=== PATIENT | male | born 1955 ===

== ENCOUNTER 2017-08-17 06:04 | Day surgery (SDC) | payer BC, OTHER, MEDICARE ==
[2017-08-15 15:07] VITALS: BMI 30.7
[2017-08-17 06:31] VITALS: RESP 20
[2017-08-17] MEDS ORDERED: Lidocaine 1% Inj (20ml) IJ ONE (06:46)
[2017-08-17] MEDS ORDERED: ceFAZolin 2 GM in Sodium Chloride 0.9% 100 ML IVPB ONE (06:46)
[2017-08-17] MEDS ORDERED: Bupivacaine 0.5% Inj(30mL) IJ ONE (06:46)
--- NOTE | 2017-08-17 06:49 | CP.SDSHP ---
Same Day Surgery H & P - History Proposed Procedure: R - foot debridement of ulcer with skin graft placement Pre-Op Diagnosis: Right foot chronic wound - Allergies Allergies: Allergies No Known Allergies Allergy (Verified 08/15/17 15:06) - Physical Exam Vital Signs: Vital Signs 08/17/17 08/17/17 06:30 06:32 Temperature 98.1 F Pulse Rate 69 69 Respiratory 20 Rate Blood Pressure 133/79 O2 Sat by Pulse 98 Oximetry Mental Status: Alert & Oriented x3 Neuro: WNL Heart: WNL Lungs: WNL - Date & Time Date: 08/17/17 Time: 06:49 Short Stay Discharge - Short Stay Discharge Admitting Diagnosis/Reason for Visit: L97.512 E10.621 Disposition: HOME/ ROUTINE Referrals: FAMILY PROVIDER,NO [Primary Care Provider] - Additional Instructions (Diet, Activity): -Patient in good/stable condition for discharge home -Pt to resume medications per medical reconciliation -Resume regular diet Please keep dressing clean, dry, & intact to surgical site -Use plastic bag over bandage for showering -Wear post op shoe at all times when ambulating -Call clinic if you seesigns of infection (redness, swelling, malodor) -Please make an appointment to see Dr. Ho in office/clinic within 1 week for post-op check Progress Note/Discharge Note with Instructions: - Patient evaluated bedside in recovery s/p surgical procedure. - After surgical procedure patient in NAD - (+) Void, (+) Appetite - Capillary refill time <3s and NVSI intact. - Patient denies complaints at this time - Post operative instructions and plan of care explained to patient at length. - Pt. acknowledges understanding. - Patient stable for DC per podiatric surgery
--- NOTE | 2017-08-17 06:52 | CP.PCM.PN ---
Subjective - Date & Time of Evaluation Date of Evaluation: 08/17/17 Time of Evaluation: 06:49 - Subjective Subjective: 62 y/o male with PMHx of DM, HTN, Hyperlipidemia, neuropathy seen and evaluated at bedside in [facility] for right foot wound debridement with graft placement procedure. Patient states that he has been NPO since midnight yesterday. Denies of any adverse reaction to anesthesia. Denies of any recent F/N/V/C/SOB/CP today. Denies of any other pedal complains now. PMHx: DM, HTN, Hyperlipidemia, neuropathy PSHx: Heart stent placement, left foot surgery, nose surgery Allergies: N.K.D.A SHx: Denies smoking, EtOH use or illicit drug usage Objective - Vital Signs/Intake and Output Vital Signs (last 24 hours): Temp Pulse Resp BP Pulse Ox 98.1 F 69 20 133/79 98 08/17/17 06:30 08/17/17 06:32 08/17/17 06:30 08/17/17 06:30 08/17/17 06:30 - Medications Medications: Current Medications Bupivacaine HCl (Marcaine 0.5%) 50 ml IJ ONCE ONE Stop: 08/17/17 06:47 Cefazolin Sodium 2 gm/ Sodium (Chloride) 100 mls @ 100 mls/hr IVPB ONCE ONE PRN Reason: Protocol Stop: 08/17/17 07:45 Sodium Chloride (Sodium Chloride 0.9%) 1,000 mls @ 120 mls/hr IV .[id number] KHUSHI Stop: 08/18/17 06:47 Lidocaine HCl (Lidocaine 1% (20ml)) 20 ml IJ ONCE ONE Stop: 08/17/17 06:47 - Constitutional Appears: Well, Non-toxic, No Acute Distress - Extremities Exam Extremities Exam: absent: Calf Tenderness Additional comments: Patient has a dressing on, the dressing is clean, dry and intact. Mild sanguineous strike through noted on the plantar aspect of the right foot dressing, no malodor, no streaking or erythema extending up the leg - Neurological Exam Neurological Exam: Alert, Awake, Oriented x3 - Psychiatric Exam Psychiatric exam: Normal Affect, Normal Mood Assessment and Plan - Assessment and Plan (Free Text) Assessment: 62 y/o male with PMHx of DM, HTN, Hyperlipidemia, neuropathy seen and evaluated at bedside in [facility] for right foot wound debridement with graft placement procedure. Plan: Pt was seen and examined in [facility] Pt NPO status was confirmed All Pre-op testing and clearance was in the chart Pt has exhausted all conservative treatment at this time and is opting for surgical intervention Pt was explained procedure and post-operative course All pt's questions were answered to satisfaction No guarantees were made Pt understands all risks, benefits and complications of procedure Pt will follow-up with Dr. Ho
[2017-08-17] MEDS ORDERED: Sodium Chloride 0.9% 1,000 ML IV SCH (07:00)
--- NOTE | 2017-08-17 08:42 | CARD ---
APPROVED REPORT EKG Measurement Heart [id number] <Conclusion> Normal sinus rhythm Normal ECG
[2017-08-17] MEDS ORDERED: Propofol 10 mg/ml Inj (20 ML) ONE (08:45)
[2017-08-17] MEDS ORDERED: Midazolam 2 MG/2 ML VIAL ONE (08:45)
[2017-08-17] MEDS ORDERED: Bupivacaine 0.5% Inj(30mL) ONE (08:46)
[2017-08-17] MEDS ORDERED: Lidocaine 1% Inj (20ml) ONE (08:46)
[2017-08-17] MEDS ORDERED: ceFAZolin IV 1 gm in Dextrose 2 GM/100 ML BAG IVPB ONE (08:46)
[2017-08-17] MEDS ORDERED: Lactated Ringer's 1,000 ML IV ONE (09:16)
--- NOTE | 2017-08-17 09:36 | PCM.SURG1 ---
Surgeon's Initial Post Op Note - Surgeon's Notes Surgeon: Dr. Ion Ho DPM Manganese Wheeler: Dr. Radhika Wilson PGY-2 Type of Anesthesia: IV Sedation, Local Anesthesia Administered By: Dr. Suyapa ROJAS Pre-Operative Diagnosis: Right foot chronic wound secondary to charcot foot Operative Findings: See dictation. M: [place] Skin graft. I: 15 cc of lidocaine plain - pre-op Post-Operative Diagnosis: same Operation Performed: Wound debridement with removal of all non-viable soft tissue and application of skin graft Specimen/Specimens Removed: none Estimated Blood Loss: EBL {In ML}: 10 Blood Products Given: N/A Drains Used: No Drains Post-Op Condition: Good Date of Surgery/Procedure: 08/17/17 Time of Surgery/Procedure: 09:36
[2017-08-17] MEDS ORDERED: Oxycodone/Acetaminophen 5/325 mg Tab PO PRN ×2 (09:37)
[2017-08-17] MEDS ORDERED: Lactated Ringer's 1,000 ML IV SCH (09:45)
[2017-08-17 11:22] VITALS: BP 137/72; PULSE 69; TEMP 97.8; O2SAT 99
--- NOTE | 2017-08-21 09:22 | OP ---
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 POSTOPERATIVE DIAGNOSIS: Chronic ulceration of plantar aspect of right foot. NAME OF PROCEDURE: Debridement of chronic ulceration of plantar aspect of the right foot with application of graft. SURGEON: Ion Ho DPM STORY EDITOR: Kasey Wilson DPM TYPE OF ANESTHESIA: MAC, IV sedation with local injection. RETURNED TELEPHONE EQUIPMENT APPRAISER: Luis Dale MD INDICATIONS: The patient is a 62-year-old male with the above mentioned diagnosis. The patient has exhausted all conservative treatment measures at this time and now require surgical intervention. The patient signed the consent after careful explanation of all risks, benefits, complications and alternative for surgical procedures. No guarantees were given nor implied. N.p.o. status was confirmed prior to taking the patient to the operating room. PREPARATION: The patient was brought to the operating room and placed in the operating room table in a supine position. No ankle tourniquet was required for this procedure. After induction of IV sedation, the patient received a total of 10 mL of 1% lidocaine plain in a local block fashion to the patient's right foot. Once local anesthesia was achieved, the right foot was then prepped and draped in a usual sterile manner and the procedure was begun. DESCRIPTION OF THE PROCEDURE: Debridement of chronic ulceration of plantar aspect of right foot with application of graft. Attention was then directed to the plantar aspect of the patient's right foot where an ulceration measuring approximately 2.5 x 2.3 x 0.4 cm was noted. The wound base appeared to be hypergranular in appearance. There was no presence of malodor. No drainage. No clinical signs of infection. At this time, a sterile number 15 blade was utilized to excisionally debride a fatty granular plugs from the wound base which was then resected and passed in the operative field for pathology. At this time, the wound bed was inspected with healthy granular base and healthy bleeding noted. There appeared to be no tracking, no undermining, negative probe to bone, and negative for any abscesses or signs of infection. At this time, a pulse lavage was utilized to copiously flush the wounds with a mixture of saline and chlorhexidine solution. Once the wound bed was thoroughly irrigated the [place] graft was then placed to the wound bed and then adhered to the skin edges using Steri-Strips. The wound was then dressed with Adaptic, 4x4 gauze, Kerlix and ALEXEI bandage. POSTOPERATIVE CONDITION: The patient tolerated the anesthesia well and was escorted to the recovery room, vital signs stable, and neurovascular status intact to the right foot. The patient will be strictly nonweightbearing to his right foot and will follow up with Dr. Willett in the office within one week. Kasey Wilson DPM Ion Ho DPM MTDStella
== END 2017-08-17 11:35 | disposition home or self-care (01) ==
LOC: H.OPSURG 06:04
PROVIDERS: ATTEND Podiatrist Foot & Ankle Surgery
DX: E11.621 Type 2 diabetes mellitus with foot ulcer (principal); L97.512 Non-pressure chronic ulcer of other part of right foot with fat layer exposed; E78.5 Hyperlipidemia, unspecified; I10 Essential (primary) hypertension; Z98.61 Coronary angioplasty status; E11.610 Type 2 diabetes mellitus with diabetic neuropathic arthropathy
CPT/HCPCS: 15275; 82948; 87070; 87181; 88305; 93005; 97116; 97161; 97530; G8978; G8979; J0690; J2001; J2250; J2704; J3010; J7040; J7120

== ENCOUNTER 2017-08-31 11:16 | Day surgery (SDC) | payer BC, OTHER, MEDICARE ==
[2017-08-31 11:36] VITALS: BMI 31.5
[2017-08-31] MEDS ORDERED: Mineral Oil Light Sterile 25 ml ONE (13:38)
[2017-08-31] MEDS ORDERED: Bupivacaine 0.5% Inj(30mL) ONE (13:38)
[2017-08-31] MEDS ORDERED: Lidocaine 2% Inj (20ml) ONE ×2 (13:39→13:54)
[2017-08-31] MEDS ORDERED: ceFAZolin IV 1 gm in Dextrose 0 GM/0 ML BAG IVPB ONE (13:46)
--- NOTE | 2017-08-31 13:55 | CP.SDSHP ---
Same Day Surgery H & P - History Proposed Procedure: Right foot debridement of ulcer w/Versajet and possible graft application Pre-Op Diagnosis: Right foot nonhealing ulceration - Previous Medical/Surgical History Pulmonary: Asthma Endocrine/Metabolic: Diabetes Pain: 0. No Pain - Allergies Allergies: Allergies No Known Allergies Allergy (Verified 08/31/17 12:16) - Physical Exam Vital Signs: Vital Signs 08/31/17 11:59 Temperature 97.8 F Pulse Rate 67 Respiratory 15 Rate Blood Pressure 115/61 O2 Sat by Pulse 97 Oximetry Mental Status: Alert & Oriented x3 Neuro: WNL Heart: WNL Lungs: WNL GI: WNL - {Optional Preform as Required} Integument: Other (Right foot plantar ulceration) - Impression Impression: Pt was seen and examined in SDS. Pt NPO status was confirmed. All Pre-op testing and clearance was in the chart. Pt has exhausted all conservative treatment at this time and is opting for surgical intervention. Pt was explained procedure and post-operative course. All pt's questions were answered to satisfaction. No guarantees were made. Pt understands all risks, benefits and complications of procedure. Pt will follow-up with Dr. Ho Pt. Evaluated Today:Candidate for Anesthesia & Procedure: Yes Short Stay Discharge - Short Stay Discharge Admitting Diagnosis/Reason for Visit: L97.512 /E10.621 Disposition: HOME/ ROUTINE Referrals: FAMILY PROVIDER,NO [Primary Care Provider] - Follow-up: Follow up with Dr. Ho in office next Sunday, 09/04 for post op visit Additional Instructions (Diet, Activity): -Patient in good/stable condition for discharge home -Pt to resume medications per medical reconciliation -Resume regular diet Please keep dressing clean, dry, & intact to surgical site -Use plastic bag over bandage for showering -Wear post op shoe at all times when ambulating -Call clinic if you seesigns of infection (redness, swelling, malodor) -Please make an appointment to see Dr. Ho in office/clinic within 1 week for post-op check Progress Note/Discharge Note with Instructions: - Patient evaluated bedside in recovery s/p surgical procedure. - After surgical procedure patient in NAD - (+) Void, (+) Appetite - Capillary refill time <3s and NVSI intact. - Patient denies complaints at this time - Post operative instructions and plan of care explained to patient at length. - Pt. acknowledges understanding. - Patient stable for DC per podiatric surgery
--- NOTE | 2017-08-31 13:59 | CP.PCM.PN ---
Subjective - Date & Time of Evaluation Date of Evaluation: 08/31/17 Time of Evaluation: 13:56 - Subjective Subjective: Podiatry Progress Note - Dr. Ho 62 y/o male with PMHx of DM, HTN, Hyperlipidemia, neuropathy seen and evaluated at bedside in [facility] for right foot wound debridement with possible application of graft. Patient has exhausted conservative treatment at this time and now requests surgical intervention. Patient states he has been NPO past midnight except for medications. Patient denies any pain in his right foot. Patient states he has already received prescriptions from Dr. Ho. Denies N/V/F/D/C/ SOB/calf pain. PMHx: DM, HTN, Hyperlipidemia, neuropathy PSHx: Heart stent placement, left foot surgery, nose surgery Allergies: N.K.D.A SHx: Denies smoking, EtOH use or illicit drug usage Objective - Vital Signs/Intake and Output Vital Signs (last 24 hours): Temp Pulse Resp BP Pulse Ox 97.8 F 67 15 115/61 97 08/31/17 11:59 08/31/17 11:59 08/31/17 11:59 08/31/17 11:59 08/31/17 11:59 - Constitutional Appears: Well, Non-toxic, No Acute Distress - Extremities Exam Additional comments: Dressing to right foot appears clean/dry/intact with no strikethrough noted. - Neurological Exam Neurological Exam: Alert, Awake, Oriented x3 - Psychiatric Exam Psychiatric exam: Normal Affect, Normal Mood Assessment and Plan - Assessment and Plan (Free Text) Assessment: 62 y/o male with PMHx of DM, HTN, Hyperlipidemia, neuropathy seen and evaluated at bedside in [facility] for right foot wound debridement with possible application of graft Plan: Pt was seen and examined in [facility] Pt NPO status was confirmed All Pre-op testing and clearance was in the chart Pt has exhausted all conservative treatment at this time and is opting for surgical intervention Pt was explained procedure and post-operative course All pt's questions were answered to satisfaction No guarantees were made Pt understands all risks, benefits and complications of procedure Pt will follow-up with Dr. Ho
[2017-08-31] MEDS ORDERED: ceFAZolin IV 2 gm in Dextrose 2 GM/50 ML BAG IVPB ONE (14:00)
[2017-08-31] MEDS ORDERED: Lidocaine 1% Inj (20ml) IJ ONE (14:00)
--- NOTE | 2017-08-31 15:20 | PCM.SURG1 ---
Surgeon's Initial Post Op Note - Surgeon's Notes Surgeon: Dr. Ion Ho DPM Baseball Club Manager: Dr. Vincent Juarez DPM PGY-1 Type of Anesthesia: Local Anesthesia Administered By: RN Pre-Operative Diagnosis: Chronic right foot wound Operative Findings: See dictation. M: Epifix graft. I: 13 cc of lidocain 2% plain Post-Operative Diagnosis: Same Operation Performed: Right foot wound debridement with graft placement and removal of all non-viable tissue Specimen/Specimens Removed: none Estimated Blood Loss: EBL {In ML}: 5 Blood Products Given: N/A Drains Used: No Drains Post-Op Condition: Good Date of Surgery/Procedure: 08/31/17 Time of Surgery/Procedure: 15:19
[2017-08-31 15:50] VITALS: RESP 18; TEMP 98.2
[2017-08-31 16:27] VITALS: BP 130/82; PULSE 72; O2SAT 96
--- NOTE | 2017-09-05 14:48 | OP ---
PROCEDURE DATE: 08/31/2017 PREOPERATIVE DIAGNOSIS: Right foot nonhealing ulcer. POSTOPERATIVE DIAGNOSIS: Right foot nonhealing ulcer. NAME OF THE PROCEDURE: Right foot plantar wound debridement with Versajet and application of EpiFix amniotic allograft. SURGEON: Ion Ho DPM. CHEMICAL LABORATORY TESTER: Vincent Juarez DPM, PGY1. ANESTHESIOLOGIST: OR nurse. ANESTHESIA: Local sedation. INDICATIONS: The patient is a 62-year-old male with the above diagnosis. The patient has exhausted all conservative treatment at this time and now requires surgical intervention. The patient signed the consent after careful explanation of risks, benefits, complications and alternatives for the surgical procedure. No guarantees were given nor implied. N.p.o. status was confirmed prior to taking the patient to the OR. PREPARATION: The patient was brought into the operating room and placed on the operating room table in the supine position. Time-out was performed for identification of the correct patient and the procedure. The patient received a total of 13 mL of 2% lidocaine plain in a ring block fashion to the plantar lateral wound on the right foot. Once the local anesthesia was achieved, the right foot was then prepped and draped in normal sterile manner and the procedure began. No tourniquet was used during this procedure. Attention was directed to the right plantar lateral wound where an approximately 2 cm x 2.1 cm x 0.1 cm ulceration was noted. Ulceration was noted to be composed of granular and fibrotic tissue with no visible bone exposure with a hyperkeratosis noted to the periwound area. No drainage was noted through the wound bed. Using a #15 blade, the wound edges were debrided to relieve pressure. A Versajet mechanical debridement tool was then used to remove all fibrotic and nonviable tissue from the wound base and the wound margin. At this time, using a curved stat the wound bed was probed to check for the soft tissue coverage and to make sure if the bone was exposed. No probe to bone was appreciated during this maneuver. The surgical site was then irrigated using sterile saline and antibiotic infused solution. Intraoperative wound cultures were taken as well. At this time, the EpiFix graft was then applied to cover the entirety of the wound. The graft was then secured using steri-strips. At this time, a fluff dressing was applied using 4 x 4 gauze, ABD, Kerlix. POSTOPERATIVE CONDITION: The patient tolerated the procedure well and was escorted to the recovery room with vital signs stable and neurovascular status intact to the right foot. The patient is to be non-weightbearing to the right lower extremity using a knee scooter. The patient will follow up with Dr. Ho as an outpatient and discharge from the hospital. Vincent Juarez DPM Ion Ho DPM MTDStella
== END 2017-08-31 16:25 | disposition home or self-care (01) ==
LOC: H.OPSURG 11:16
PROVIDERS: ATTEND Podiatrist Foot & Ankle Surgery
DX: E11.621 Type 2 diabetes mellitus with foot ulcer (principal); L97.512 Non-pressure chronic ulcer of other part of right foot with fat layer exposed; J45.909 Unspecified asthma, uncomplicated; I10 Essential (primary) hypertension; G47.33 Obstructive sleep apnea (adult) (pediatric); Z95.5 Presence of coronary angioplasty implant and graft; E78.5 Hyperlipidemia, unspecified
CPT/HCPCS: 15275; 82948; 87070; 87181; J0690; J7030; Q4131

== ENCOUNTER 2017-09-28 13:26 | Day surgery (SDC) | payer BC, OTHER, MEDICARE ==
[2017-09-28 14:27] VITALS: RESP 18; O2SAT 97
[2017-09-28 14:39] VITALS: BMI 33.3
[2017-09-28] MEDS ORDERED: Lidocaine 1% Inj (20ml) ONE ×2 (15:29→16:02)
[2017-09-28] MEDS ORDERED: Bupivacaine 0.5% Inj(30mL) ONE (15:29)
[2017-09-28] MEDS ORDERED: Bupivacaine 0.5% Inj(30mL) IJ ONE (16:00)
[2017-09-28] MEDS ORDERED: Lidocaine 1% Inj (20ml) IJ ONE ×2 (16:00)
[2017-09-28 16:43] VITALS: BP 150/80; PULSE 68; TEMP 97.5
--- NOTE | 2017-09-28 16:46 | CP.PCM.PN ---
Subjective - Date & Time of Evaluation Date of Evaluation: 09/28/17 Time of Evaluation: 03:30 - Subjective Subjective: Podiatry Note- Dr. Ho 62 y.o male with PMH of DM, HTN, COPD, neuropathy, sleep apnea, high cholesterol , GERD, neuropathy seen in [facility] for priyank-operative for right foot ulceration debridement with graft. He reports no eating or drinking anything since 8pm last night. Patient denies adverse reaction to anesthesia PMHx: DM, HTN, Hyperlipidemia, neuropathy PSHx: Heart stent placement, left foot surgery, nose surgery Allergies: N.K.D.A SHx: Denies smoking, EtOH use or illicit drug usage Objective - Vital Signs/Intake and Output Vital Signs (last 24 hours): Temp Pulse Resp BP Pulse Ox 97.5 F L 68 18 150/80 97 09/28/17 16:35 09/28/17 16:35 09/28/17 16:35 09/28/17 16:35 09/28/17 16:35 - Constitutional Appears: Well, Non-toxic, No Acute Distress - Extremities Exam Additional comments: Dressing to right foot is c/d/i without strikethrough noted. - Neurological Exam Neurological Exam: Alert, Awake - Psychiatric Exam Psychiatric exam: Normal Affect, Normal Mood Assessment and Plan - Assessment and Plan (Free Text) Assessment: 62 y.o male with PMH of DM, HTN, COPD, neuropathy, sleep apnea, high cholesterol , GERD, neuropathy seen in [facility] for priyank-operative for right foot ulceration debridement with graft. Plan: Pt was seen and examined in [facility] Pt NPO status was confirmed All Pre-op testing and clearance was in the chart Pt has exhausted all conservative treatment at this time and is opting for surgical intervention Pt was explained procedure and post-operative course All pt's questions were answered to satisfaction No guarantees were made Pt understands all risks, benefits and complications of procedure Pt will follow-up with Dr. Ho
--- NOTE | 2017-09-28 16:46 | CP.SDSHP ---
Same Day Surgery H & P - History Proposed Procedure: right foot debridment with application of graft Pre-Op Diagnosis: right foot ulceration - Allergies Allergies: Allergies No Known Allergies Allergy (Verified 09/28/17 14:39) - Physical Exam Vital Signs: Vital Signs 09/28/17 09/28/17 09/28/17 14:25 14:33 16:35 Temperature 97.8 F 97.5 F L Pulse Rate 71 71 68 Respiratory 18 18 Rate Blood Pressure 108/57 L 150/80 O2 Sat by Pulse 97 97 Oximetry 09/28/17 16:43 Temperature Pulse Rate Respiratory Rate Blood Pressure O2 Sat by Pulse 97 Oximetry - {Optional Preform as Required} Integument: WNL - Impression Impression: Pt was seen and examined in SDS. Pt NPO status was confirmed. All pre-op testing and clearance in chart. Pt has exhausted all conservative treatment at this time and is opting for surgical intervention. Pt was explained procedure and post-operative course. All pt's questions were answered to satisfaction. No guarantees were made. Pt understands all risks, benefits and complications of procedure. Pt will follow-up with Dr. Ho within 1 week of surgery - Date & Time Date: 09/28/17 Time: 16:00 Short Stay Discharge - Short Stay Discharge Admitting Diagnosis/Reason for Visit: L97.512 Disposition: HOME/ ROUTINE Referrals: FAMILY PROVIDER,NO [Primary Care Provider] - Instructions: RICE Therapy (GEN) Additional Instructions (Diet, Activity): -Patient in good/stable condition for discharge home -Pt to resume medications per medical reconciliation -Resume regular diet Please keep dressing clean, dry, & intact to surgical site -Use plastic bag over bandage for showering -Wear post op shoe at all times when ambulating -Call clinic if you seesigns of infection (redness, swelling, malodor) -Please make an appointment to see Dr. Ho in office/clinic within 1 week for post-op check Progress Note/Discharge Note with Instructions: - Patient evaluated bedside in recovery s/p surgical procedure. - After surgical procedure patient in NAD - (+) Void, (+) Appetite - Capillary refill time <3s and NVSI intact. - Patient denies complaints at this time - Post operative instructions and plan of care explained to patient at length. - Pt. acknowledges understanding. - Patient stable for DC per podiatric surgery
[2017-09-28] MEDS ORDERED: Oxycodone/Acetaminophen 5/325 mg Tab PO PRN ×2 (16:58)
--- NOTE | 2017-09-29 12:16 | PCM.SURG1 ---
Surgeon's Initial Post Op Note - Surgeon's Notes Surgeon: Dr. Ho Opener: Dr. Rob Type of Anesthesia: Local Pre-Operative Diagnosis: right foot ulcer Operative Findings: see dictation. Injectables: 10 cc of 1% lidocaine pain. Post-Operative Diagnosis: same Operation Performed: right foot debridment with application of synthetic graft Specimen/Specimens Removed: none Estimated Blood Loss: EBL {In ML}: 10 Blood Products Given: N/A Drains Used: No Drains Post-Op Condition: Good Date of Surgery/Procedure: 09/28/17 Time of Surgery/Procedure: 16:00
--- NOTE | 2017-10-01 08:30 | OP ---
PROCEDURE DATE: 09/28/2017 SURGEON: Ion Ho DPM STORE SALES CONSULTANT: Estiven Rob, PGY-1 ANESTHESIOLOGIST: None. TYPE OF ANESTHESIA: Local. 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 NAME OF PROCEDURE: Debridement of plantar right foot ulceration with application of Synthetic skin graft. INDICATIONS: The patient is a 62-year-old male with the above diagnosis. The patient has exhausted all conservative treatment at this time and now requires surgical intervention. The patient signed the consent after careful explanation of the risks, benefits, complications and alternatives for surgical procedure. No guarantees were given nor implied. NPO status was confirmed prior to taking the patient to the OR. PREPARATION: The patient was brought into the operating room and placed on the operating room table in a supine position. Time-out was performed for identification of the correct patient and procedure. The patient then received a total of 10 mL of 1% lidocaine plain to the plantar aspect of his right foot in a circumferential manner around the ulceration site. The right lower extremity was then prepped and draped in a normal sterile manner and the procedure began. No tourniquet was used during the procedure. DESCRIPTION OF PROCEDURE: Attention was then turned to the patient's right plantar foot where a 1.6 cm x 1.7 cm x 0.2 cm ulceration was noted secondary to rocker bottom deformity from [place] neuroarthropathy. No signs of clinical infection were noted at this time including priyank-wound erythema, purulent drainage or malodor; however, hypergranular friable tissue was noted at the base of the ulceration site. This hypergranular tissue was sharply excised from the base of the ulcer using a fresh #15-blade and pickups. Once all hypergranular tissue was excised from the surgical field, the ulceration was reassessed, and it was noted that no underlying bone or tendon structures could be seen. The ulceration was then copiously flushed with Irrisept solution. After it was flushed, 2 cc of Amniovo was injected into the ulceration site and an EpiFix synthetic skin graft was applied to the entirety of the ulceration site. The skin graft was fixated in place using Steri-Strips. The wound was then dressed with Adaptic, 4 x 4 gauze, Kerlix, and an [place] bandage. POSTOPERATIVE CONDITION: The patient tolerated the anesthesia and procedure well and was escorted to the recovery room with vital signs stable and neurovascular status intact to the right lower extremity. The patient is to remain nonweightbearing as tolerated to the right foot in a surgical shoe as previously discussed between him and Dr. Ho. He is to keep all the dressings clean, dry and intact until his next visit with Dr. Ho which is at his next regularly scheduled appointment. Estiven Rob DPM Ion Ho DPM MTDD
== END 2017-09-28 17:10 | disposition home or self-care (01) ==
LOC: H.OPSURG 13:26
PROVIDERS: ATTEND Podiatrist Foot & Ankle Surgery
DX: E11.621 Type 2 diabetes mellitus with foot ulcer (principal); L97.512 Non-pressure chronic ulcer of other part of right foot with fat layer exposed; E11.610 Type 2 diabetes mellitus with diabetic neuropathic arthropathy; E78.00 Pure hypercholesterolemia, unspecified; I10 Essential (primary) hypertension; J44.9 Chronic obstructive pulmonary disease, unspecified; K21.9 Gastro-esophageal reflux disease without esophagitis; Z98.890 Other specified postprocedural states
CPT/HCPCS: 15275; 82948; J7030; Q4131; Q4139

== ENCOUNTER 2017-10-26 12:30 | Day surgery (SDC) | payer BC, MEDICARE ==
--- NOTE | 2017-10-26 13:22 | CP.SDSHP ---
Same Day Surgery H & P - History Proposed Procedure: Debridement of foot ulcer - Right Pre-Op Diagnosis: Chronic R foot ulceration - Allergies Allergies: Allergies No Known Allergies Allergy (Verified 09/28/17 14:39) - Physical Exam Vital Signs: Vital Signs 10/26/17 13:11 Temperature 97.9 F Pulse Rate 62 Respiratory 20 Rate Blood Pressure 131/76 O2 Sat by Pulse 94 L Oximetry Neuro: WNL - {Optional Preform as Required} Integument: Other - Date & Time Date: 10/26/17 Time: 13:22 Short Stay Discharge - Short Stay Discharge Admitting Diagnosis/Reason for Visit: L97.512 Disposition: HOME/ ROUTINE Referrals: FAMILY PROVIDER,NO [Primary Care Provider] - Additional Instructions (Diet, Activity): -Patient in good/stable condition for discharge home -Pt to resume medications per medical reconciliation -Resume regular diet Please keep dressing clean, dry, & intact to surgical site -Use plastic bag over bandage for showering -Wear post op shoe at all times when ambulating -Call clinic if you see signs of infection (redness, swelling, malodor) -Please make an appointment to see Dr. Ho in office/clinic within 1 week for post-op check Progress Note/Discharge Note with Instructions: - Patient evaluated bedside in recovery s/p surgical procedure. - After surgical procedure patient in NAD - (+) Void, (+) Appetite - Capillary refill time <3s and NVSI intact. - Patient denies complaints at this time - Post operative instructions and plan of care explained to patient at length. - Pt. acknowledges understanding. - Patient stable for DC per podiatric surgery
--- NOTE | 2017-10-26 13:24 | CP.PCM.PN ---
Subjective - Date & Time of Evaluation Date of Evaluation: 10/26/17 Time of Evaluation: 13:23 - Subjective Subjective: Podiatry Note- Dr. Ho 62 y.o male with PMH of DM, HTN, COPD, neuropathy, sleep apnea, high cholesterol , GERD, neuropathy seen in [facility] for priyank-operative for right foot ulceration debridement with graft. Reports that he has been NPO since yesterday. Patient denies adverse reaction to anesthesia Denies of having any recent F/N/V/C/SOB/CP PMHx: DM, HTN, Hyperlipidemia, neuropathy PSHx: Heart stent placement, left foot surgery, nose surgery Allergies: N.K.D.A SHx: Denies smoking, EtOH use or illicit drug usage Objective - Vital Signs/Intake and Output Vital Signs (last 24 hours): Temp Pulse Resp BP Pulse Ox 97.9 F 62 20 131/76 94 L 10/26/17 13:11 10/26/17 13:11 10/26/17 13:11 10/26/17 13:11 10/26/17 13:11 - Constitutional Appears: Well, Non-toxic, No Acute Distress - Extremities Exam Additional comments: Dressing to right foot is c/d/i without strikethrough noted. - Neurological Exam Neurological Exam: Alert, Awake, Oriented x3 - Psychiatric Exam Psychiatric exam: Normal Affect, Normal Mood Assessment and Plan - Assessment and Plan (Free Text) Assessment: 62 year old male patient with PMHx of DM, HTN, COPD, neuropathy, sleep apnea, high cholesterol, GERD, neuropathy seen in [facility] for priyank-operative for right foot ulceration debridement with graft. Plan: Pt was seen and examined in [facility] Pt NPO status was confirmed All Pre-op testing and clearance was in the chart Pt has exhausted all conservative treatment at this time and is opting for surgical intervention Pt was explained procedure and post-operative course All pt's questions were answered to satisfaction No guarantees were made Pt understands all risks, benefits and complications of procedure Pt will follow-up with Dr. Ho
[2017-10-26] MEDS ORDERED: Bupivacaine 0.5% Inj(30mL) ONE (13:29)
[2017-10-26] MEDS ORDERED: Lidocaine 1% Inj (20ml) ONE (13:29)
[2017-10-26 14:15] VITALS: BMI 30.2
--- NOTE | 2017-10-26 15:03 | PCM.SURG1 ---
Surgeon's Initial Post Op Note - Surgeon's Notes Surgeon: Dr. Ion Ho DPM Graduate Teaching Assistant: Dr. Estiven Rob DPM PGY-1 Type of Anesthesia: Local Anesthesia Administered By: RN Pre-Operative Diagnosis: Chronic right foot wound Operative Findings: See dictation. M: Epifix graft, Amnivo. I: none Post-Operative Diagnosis: Same Operation Performed: Right foot debridment with application of Epifix graft Specimen/Specimens Removed: none Estimated Blood Loss: EBL {In ML}: 0 Blood Products Given: N/A Drains Used: No Drains Post-Op Condition: Good Date of Surgery/Procedure: 10/26/17 Time of Surgery/Procedure: 15:00
[2017-10-26 15:40] VITALS: TEMP 98.2
[2017-10-26 15:42] VITALS: BP 132/74; PULSE 58; RESP 18
[2017-10-26 15:45] VITALS: O2SAT 9
--- NOTE | 2017-11-05 08:22 | OP ---
PROCEDURE DATE: 10/26/2017 PREOPERATIVE DIAGNOSIS: Chronic nonhealing wound of right foot. POSTOPERATIVE DIAGNOSIS: Chronic nonhealing wound of right foot. NAME OF PROCEDURE: Debridement of chronic right foot wound with application of EpiFix synthetic skin graft and injection of Amniovo. SURGEON: Ion Ho DPM HIDE WORKER: Estiven Rob DPM, PGY-1 TYPE OF ANESTHESIA: None. INDICATIONS: The patient is a 62-year-old male with the above diagnosis. The patient has exhausted all conservative treatments at this time and now requires surgical intervention. The patient signed consent after careful explanation of risks, benefits, complications, and alternatives for surgical procedure. No guarantees were given nor implied. N.p.o. status was confirmed prior to taking the patient to the OR. PREPARATION: The patient was brought into the operating room and placed on the operating room table in a supine position. Timeout was performed for identification of the correct patient and procedure. No anesthesia was used during this procedure. No tourniquet was used during this procedure. The right foot was prepped and draped in normal sterile manner and procedure began. DESCRIPTION OF PROCEDURE: PROCEDURE #1. Attention was then turned to the plantar right foot where a chronic nonhealing ulceration with a hypergranular base measuring 1 cm x 1.2 cm was noted. Using a fresh #15 blade, the hypergranular tissue at the base of the ulcer was debrided down to an appropriate level with healthy bleeding noted. All hyperkeratotic tissue surrounding the ulceration site was debrided down to a normal dermal level. Once this was completed, the wound site was flushed with Irrisept solution and then 1 mL of Amniovo was injected to multiple areas in and around the wound edges. Following this, an EpiFix synthetic skin graft was applied to the surgical site and the wound was dressed with Adaptic and dry sterile dressing. POSTOPERATIVE CONDITION: The patient tolerated the procedure well and was escorted to the recovery room with vital signs stable and neurovascular status intact to the right lower extremity. The patient is to remain weightbearing as tolerated to his right heel in a surgical shoe and is to keep his dressings clean, dry and intact. The patient will follow up with Dr. Ho in his private office in 1 week's time to ensure that the healing process is progressing in an appropriate manner. Estiven Rob DPM Ion NEIL Ho [facility] # [id number] JUS
== END 2017-10-26 15:10 | disposition home or self-care (01) ==
LOC: H.OPSURG 12:30
PROVIDERS: ATTEND Podiatrist Foot & Ankle Surgery
DX: L97.512 Non-pressure chronic ulcer of other part of right foot with fat layer exposed (principal); E11.40 Type 2 diabetes mellitus with diabetic neuropathy, unspecified; E11.621 Type 2 diabetes mellitus with foot ulcer; E78.00 Pure hypercholesterolemia, unspecified; I10 Essential (primary) hypertension; K21.9 Gastro-esophageal reflux disease without esophagitis; J44.9 Chronic obstructive pulmonary disease, unspecified
CPT/HCPCS: 15275; 82948; 88305; J7030; Q4131; Q4139